=== PATIENT | female | born 1945 | race Caucasian/White ===

== ENCOUNTER 2017-03-01 06:36 | Day surgery (SDC) | payer OTHER, MEDICARE ==
[2017-02-23 14:47] LABS: BASOPHILS % (AUTO) 0.3 % (0-1); CLARITY,URINE CLEAR (Clear); COLOR,URINE YELLOW (Yellow); EOSINOPHILS # (AUTO) 0.3 X10'3 (0-0.9); EOSINOPHILS % (AUTO) 3.6 % (0-6); GLUCOSE, URINE NEGATIVE (Neg); KETONES,URINE NEGATIVE (Neg); LEUKOCYTE ESTERASE ,URINE NEGATIVE (Neg); LYMPHOCYTES # (AUTO) 1.4 X10'3 (1.1-4.8); LYMPHOCYTES % (AUTO) 16.8 % (21-51); MEAN CORPUSCULAR HEMOGLOBIN 30.4 PG (27.0-31.0); MEAN CORPUSCULAR HGB CONC 34.3 % (33.0-36.5); MEAN CORPUSCULAR VOLUME 88.6 FL (78-98); MEAN PLATELET VOLUME 7.1 FL (7.4-10.4); MONOCYTES # (AUTO) 0.8 X10'3 (0-0.9); MONOCYTES % (AUTO) 9.8 % (2-12); NEUTROPHILS # (AUTO) 5.7 X10'3 (1.8-7.7); NEUTROPHILS % (AUTO) 69.5 % (42-75); NITRITES, URINE NEGATIVE (Neg); OCCULT BLOOD,URINE NEGATIVE (Neg); PRE OP HEMATOCRIT 39.5 % (35.0-45.0); PRE OP HEMOGLOBIN 13.6 g/dL (12.0-16.0); PRE OP PLATELET COUNT 245 X10'3 (140-440); PROTEIN,URINE NEGATIVE (Neg); RED BLOOD COUNT 4.46 X10'6 (4.20-5.60); RED CELL DISTRIBUTION WIDTH 13.2 % (11.5-14.5); UROBILINOGEN,URINE 0.2 E.U/dL (0.2-1.0)
[2017-02-23 14:48] LABS: UA COLLECTION TYPE CLN CATCH MIDSTREAM
[2017-02-23 15:01] LABS: ALBUMIN 3.6 G/DL (3.4-5.0); ALKALINE PHOSPHATASE 119 IU/L (46-116); BLOOD UREA NITROGEN 11 MG/DL (7-18); BUN/CREATININE RATIO 12.9 (6.6-38.0); CALCIUM 8.6 MG/DL (8.5-10.1); CHLORIDE 109 MMOL/L (99-107); CREATININE 0.85 MG/DL (0.40-0.90); PRE OP ALT 41 U/L (30-65); PRE OP ANION GAP 10 (8-16); PRE OP AST 30 U/L (10-37); PRE OP BILIRUB, TOTAL 0.5 MG/DL (0.0-1.0); PRE OP GLUCOSE 94 MG/DL (70-104); PRE OP SODIUM 144 MMOL/L (135-145); TOTAL CARBON DIOXIDE 25.5 MMOL/L (24-32); TOTAL PROTEIN 7.3 G/DL (6.4-8.2); eGFR 66 ML/MIN
[2017-02-23 15:02] LABS: PRE OP POTASSIUM 3.2 MMOL/L (3.4-5.1)
[~2017-03-01] VITALS: Ht 165.1 cm; Wt 74.0 kg
[2017-03-01] VITALS (8 sets, daily range): BP systolic 110–138; BP diastolic 56–82
[~2017-03-01 06:36] MED LIST: ATE25T PO; BUPR150T8 PO; CHRO1TAB8 PO; DICL1ADH18 TOP; DOCUMENT DATE & TIME OF BETA-BLOCKER PO ONE; GLUC750T8 PO; HYDR-568 PO; LEVO25TA7 PO; MULT-1074 PO; OMEP-84 PO; RED30POW PO; SIMV20TA5 PO; ceFAZolin inj. 2,000 MG in dextrose 5%-water 100 ML IV ONE; famotidine 20mg tablet PO ONE; ringers solution, lacted 1,000 ML IV SCH
[2017-03-01] MEDS ORDERED: BUPIVAcaine/PF 2.5 mg/ml (0.25%) 30ml vial ONE (07:23)
[2017-03-01 08:05] LABS: ISTAT CREATININE 0.8 mg/dL (0.6-1.1); ISTAT HGB 12.2 g/dl (12.0-16.0); ISTAT IONIZED CALCIUM 1.2 mmol/L (1.03-1.32); ISTAT K 3.7 mmol/L (3.5-5.1)
[2017-03-01] MEDS ORDERED: fentaNYL/PF 50MCG/1 ML 2ML syringe ONE (08:29)
[2017-03-01] MEDS ORDERED: midazolam 2 mg/2 ml injection ONE (08:29)
[2017-03-01] MEDS ORDERED: ondansetron/PF 4mg/2ml inj ONE (08:30)
[2017-03-01] MEDS ORDERED: LIDOcaine 2% (20mg/ml) 5ml vial ONE (08:30)
[2017-03-01] MEDS ORDERED: dexamethasone sod phosphate 4mg/ml inj. ONE (08:30)
[2017-03-01] MEDS ORDERED: propofol inj 20 ML IV ONE (08:30)
[2017-03-01] MEDS ORDERED: ringers solution, lacted 1,000 ML IV SCH (08:33)
[2017-03-01] MEDS ORDERED: sevoflurane 250ml liquid IH ONE (08:33)
[2017-03-01] MEDS ORDERED: ondansetron/PF 4mg/2ml inj IV PRN (08:35)
[2017-03-01] MEDS ORDERED: meperidine/PF 25mg/ml syringe IV PRN ×2 (08:35)
[2017-03-01] MEDS ORDERED: labetalol 5mg/ml 20ml inj. IV PRN (08:35)
[2017-03-01] MEDS ORDERED: hydrALAZINE 20mg/ml inj. IV PRN (08:35)
[2017-03-01] MEDS ORDERED: ePHEDrine 50MG/ML INJ. ONE (08:48)
[2017-03-01] MEDS ORDERED: ketorolac trometh. 30mg/ml inj. ONE (09:11)
== END 2017-03-01 10:46 | disposition home or self-care (01) ==
LOC: PAS 06:36
PROVIDERS: ATTEND Orthopaedic Surgery
DX: S83.232A Complex tear of medial meniscus, current injury, left knee, initial encounter (principal); M17.12 Unilateral primary osteoarthritis, left knee; M67.52 Plica syndrome, left knee; E78.00 Pure hypercholesterolemia, unspecified; G43.909 Migraine, unspecified, not intractable, without status migrainosus; E06.3 Autoimmune thyroiditis; Z79.82 Long term (current) use of aspirin; Z79.899 Other long term (current) drug therapy; Z88.2 Allergy status to sulfonamides; Z88.8 Allergy status to other drugs, medicaments and biological substances; Z87.891 Personal history of nicotine dependence; X58.XXXA Exposure to other specified factors, initial encounter; Y93.9 Activity, unspecified; Y92.9 Unspecified place or not applicable; Y99.9 Unspecified external cause status
CPT/HCPCS: 29881; 36415; 80047; 80053; 81003; 85025; A6449; J0690; J1100; J1885; J2001; J2175; J2250; J2405; J2704; J3010; J3490; J7060; J7120; A7000

== ENCOUNTER 2017-03-16 05:38 | Emergency (ER) | payer OTHER, MEDICARE ==
[~2017-03-16] VITALS: Ht 165.1 cm; Wt 74.3 kg
[~2017-03-16 05:38] MED LIST changes: -DOCUMENT DATE & TIME OF BETA-BLOCKER PO ONE; -ceFAZolin inj. 2,000 MG in dextrose 5%-water 100 ML IV ONE; -famotidine 20mg tablet PO ONE; -ringers solution, lacted 1,000 ML IV SCH
[2017-03-16] MEDS ORDERED: acetaminophen 325mg tablet PO ONE (07:10)
[2017-03-16 10:49] VITALS: BP 107/72
== END 2017-03-16 10:52 | disposition home or self-care (01) ==
LOC: ER 05:38
DX: J06.9 Acute upper respiratory infection, unspecified (principal); K21.9 Gastro-esophageal reflux disease without esophagitis; Z88.2 Allergy status to sulfonamides; Z98.890 Other specified postprocedural states; Z79.02 Long term (current) use of antithrombotics/antiplatelets
CPT/HCPCS: 87081; 87502; 87503; 87880; 99284

== ENCOUNTER 2017-08-15 09:09 | Outpatient (CLI) | payer OTHER, MEDICARE ==
[2017-08-15 09:37] LABS: BASOPHILS % (AUTO) 0.2 % (0-1); EOSINOPHILS # (AUTO) 0.3 X10'3 (0-0.9); EOSINOPHILS % (AUTO) 3.4 % (0-6); HEMATOCRIT 38.4 % (35.0-45.0); HEMOGLOBIN 13.2 g/dl (12.0-16.0); LYMPHOCYTES % (AUTO) 20.3 % (21-51); MEAN CORPUSCULAR HEMOGLOBIN 30.4 PG (27.0-31.0); MEAN CORPUSCULAR HGB CONC 34.5 % (33.0-36.5); MEAN CORPUSCULAR VOLUME 88.1 FL (78-98); MEAN PLATELET VOLUME 7.6 FL (7.4-10.4); MONOCYTES # (AUTO) 0.5 X10'3 (0-0.9); MONOCYTES % (AUTO) 5.2 % (2-12); NEUTROPHILS # (AUTO) 7.1 X10'3 (1.8-7.7); NEUTROPHILS % (AUTO) 70.9 % (42-75); PLATELET COUNT 233 X10'3 (140-440); RED BLOOD COUNT 4.36 X10'6 (4.20-5.60); WHITE BLOOD COUNT 9.9 X10'3 (4.5-11.0)
[2017-08-15 09:42] LABS: CLARITY,URINE CLEAR (Clear); COLOR,URINE YELLOW (Yellow); GLUCOSE, URINE NEGATIVE (Neg); KETONES,URINE NEGATIVE (Neg); LEUKOCYTE ESTERASE ,URINE NEGATIVE (Neg); NITRITES, URINE NEGATIVE (Neg); OCCULT BLOOD,URINE NEGATIVE (Neg); PH,URINE 5.5 (4.8-8.0); PROTEIN,URINE NEGATIVE (Neg); UROBILINOGEN,URINE 0.2 E.U/dL (0.2-1.0)
[2017-08-15 09:43] LABS: UA COLLECTION TYPE CLN CATCH MIDSTREAM
[2017-08-15 10:06] LABS: ALANINE AMINOTRANSFERASE 23 U/L (12-78); ALBUMIN 3.6 G/DL (3.4-5.0); ALBUMIN/GLOBULIN RATIO 0.9 (1.1-1.5); ANION GAP 11 (8-16); ASPARTATE AMINO TRANSFERASE 17 U/L (10-37); BILIRUBIN,TOTAL 0.8 MG/DL (0.1-1.0); BLOOD UREA NITROGEN 23 MG/DL (7-18); BUN/CREATININE RATIO 23.2 (6.6-38.0); CALCIUM 8.6 MG/DL (8.5-10.1); CHLORIDE 106 MMOL/L (99-107); CREATININE 0.99 MG/DL (0.40-0.90); GLUCOSE 108 MG/DL (70-104); POTASSIUM 4.1 MMOL/L (3.5-5.1); SODIUM 142 MMOL/L (135-145); TOTAL CARBON DIOXIDE 25.3 MMOL/L (24-32); TOTAL PROTEIN 7.4 G/DL (6.4-8.2); eGFR 55 ML/MIN
[2017-08-15 10:07] LABS: ALKALINE PHOSPHATASE 104 IU/L (46-116); CHOL/HDL RATIO 3.4 (0.00-4.99); CHOLESTEROL 163 MG/DL (0-200); HDL CHOLESTEROL 48 MG/DL (35-60); LDL CHOLESTEROL 90 MG/DL (50-100); TRIGLYCERIDES 225 MG/DL (20-135)
[2017-08-16 19:10] LABS: MICROALB/CRT, RATIO <2.0 mg/g creat (0.0-30.0)
== END 2017-08-15 23:59 | disposition home or self-care (01) ==
LOC: LAB 09:09
PROVIDERS: ATTEND Family Medicine
DX: Z00.01 Encounter for general adult medical examination with abnormal findings (principal); I10 Essential (primary) hypertension; Z87.891 Personal history of nicotine dependence
CPT/HCPCS: 36415; 80053; 80061; 81003; 82043; 82570; 83036; 84436; 84439; 84443; 85025

== ENCOUNTER 2018-07-10 13:23 | Outpatient (CLI) | payer OTHER, MEDICARE ==
[~2018-07-10 13:23] MED LIST changes: +HYDR-4384 PO; -HYDR-568 PO
[2018-07-10 15:01] LABS: BASOPHILS # (AUTO) 0.1 X10'3 (0-0.2); BASOPHILS % (AUTO) 0.5 % (0-1); EOSINOPHILS # (AUTO) 0.3 X10'3 (0-0.9); EOSINOPHILS % (AUTO) 2.7 % (0-6); HEMATOCRIT 40.1 % (35.0-45.0); HEMOGLOBIN 13.7 g/dl (12.0-16.0); LYMPHOCYTES # (AUTO) 2.7 X10'3 (1.1-4.8); LYMPHOCYTES % (AUTO) 28.3 % (21-51); MEAN CORPUSCULAR HEMOGLOBIN 30.2 PG (27.0-31.0); MEAN CORPUSCULAR VOLUME 88.7 FL (78-98); MEAN PLATELET VOLUME 8.1 FL (7.4-10.4); MONOCYTES # (AUTO) 0.6 X10'3 (0-0.9); MONOCYTES % (AUTO) 6.8 % (2-12); NEUTROPHILS # (AUTO) 5.9 X10'3 (1.8-7.7); NEUTROPHILS % (AUTO) 61.7 % (42-75); PLATELET COUNT 230 X10'3 (140-440); RED BLOOD COUNT 4.52 X10'6 (4.20-5.60); RED CELL DISTRIBUTION WIDTH 13.1 % (11.5-14.5); WHITE BLOOD COUNT 9.5 X10'3 (4.5-11.0)
[2018-07-10 15:32] LABS: ALANINE AMINOTRANSFERASE 26 U/L (12-78); ALBUMIN 3.9 G/DL (3.4-5.0); ALBUMIN/GLOBULIN RATIO 1.1 (1.1-1.5); ALKALINE PHOSPHATASE 110 IU/L (46-116); ANION GAP 11 (8-16); ASPARTATE AMINO TRANSFERASE 19 U/L (10-37); BILIRUBIN,TOTAL 1.1 MG/DL (0.1-1.0); BLOOD UREA NITROGEN 14 MG/DL (7-18); BUN/CREATININE RATIO 16.3 (6.6-38.0); CHLORIDE 103 MMOL/L (99-107); CHOL/HDL RATIO 3.6 (0.00-4.99); CHOLESTEROL 160 MG/DL (0-200); CREATININE 0.86 MG/DL (0.40-0.90); GLUCOSE 81 MG/DL (70-104); HDL CHOLESTEROL 44 MG/DL (35-60); LDL CHOLESTEROL 93 MG/DL (50-100); POTASSIUM 3.8 MMOL/L (3.5-5.1); SODIUM 140 MMOL/L (135-145); TOTAL CARBON DIOXIDE 26.2 MMOL/L (24-32); TOTAL PROTEIN 7.6 G/DL (6.4-8.2); TRIGLYCERIDES 195 MG/DL (20-135); eGFR 65 ML/MIN
== END 2018-07-10 23:59 | disposition home or self-care (01) ==
LOC: LAB 13:23
PROVIDERS: ATTEND Family Medicine
DX: E78.5 Hyperlipidemia, unspecified (principal); L98.9 Disorder of the skin and subcutaneous tissue, unspecified; I10 Essential (primary) hypertension; Z87.891 Personal history of nicotine dependence
CPT/HCPCS: 80053; 80061; 84439; 84443; 85025

== ENCOUNTER 2018-11-28 10:32 | Emergency (ER) | payer OTHER, MEDICARE ==
[~2018-11-28] VITALS: Ht 165.1 cm; Wt 72.7 kg
[~2018-11-28 10:32] MED LIST changes: +SIMV-42 PO; -SIMV20TA5 PO
[2018-11-28 10:35] VITALS: BP 107/86
--- NOTE | 2018-11-28 11:55 | NUR ---
PATIENT TO [facility] 2 WITH C/O PAIN IN LEFT KNEE SINCE YESTERDAY. STATES SHE TWISTED HER KNEE AT WORK YESTERDAY AND IS UNABLE TO BEAR WEIGHT ON IT TODAY. MINIMAL SWELLING NOTED TO LEFT KNEE. PAIN RADIATES UP TO THIGH AND DOWN [place].
== END 2018-11-28 13:37 | disposition home or self-care (01) ==
LOC: ER 10:33
DX: S86.812A Strain of other muscle(s) and tendon(s) at lower leg level, left leg, initial encounter (principal); K21.9 Gastro-esophageal reflux disease without esophagitis; F10.99 Alcohol use, unspecified with unspecified alcohol-induced disorder; Z98.890 Other specified postprocedural states; Z88.2 Allergy status to sulfonamides; Z88.8 Allergy status to other drugs, medicaments and biological substances; Z79.899 Other long term (current) drug therapy; W22.8XXA Striking against or struck by other objects, initial encounter; Y93.89 Activity, other specified; Y92.89 Other specified places as the place of occurrence of the external cause; Y99.8 Other external cause status; Y90.9 Presence of alcohol in blood, level not specified
CPT/HCPCS: 29505; 73564; 99283

== ENCOUNTER 2018-11-30 09:45 | Outpatient (CLI) | payer OTHER, MEDICARE ==
[~2018-11-30 09:45] MED LIST changes: -SIMV-42 PO; +SIMV20TA5 PO
== END 2018-11-30 23:59 | disposition home or self-care (01) ==
LOC: RAD 09:45
PROVIDERS: ATTEND Family Medicine
DX: S83.242A Other tear of medial meniscus, current injury, left knee, initial encounter (principal); M25.462 Effusion, left knee; I10 Essential (primary) hypertension; F17.200 Nicotine dependence, unspecified, uncomplicated; X58.XXXA Exposure to other specified factors, initial encounter; Y93.89 Activity, other specified; Y92.89 Other specified places as the place of occurrence of the external cause; Y99.8 Other external cause status
CPT/HCPCS: 73721

== ENCOUNTER 2019-04-10 14:26 | Emergency (ER) | payer OTHER, MEDICARE ==
[~2019-04-10] VITALS: Ht 165.1 cm; Wt 70.9 kg
[~2019-04-10 14:26] MED LIST changes: +SIMV-42 PO; -SIMV20TA5 PO
[2019-04-10 14:50] VITALS: BP 137/86
== END 2019-04-10 16:15 | disposition home or self-care (01) ==
LOC: ER 14:27
DX: S42.92XA Fracture of left shoulder girdle, part unspecified, initial encounter for closed fracture (principal); K21.9 Gastro-esophageal reflux disease without esophagitis; Z98.890 Other specified postprocedural states; Z72.89 Other problems related to lifestyle; Z88.2 Allergy status to sulfonamides; Z88.8 Allergy status to other drugs, medicaments and biological substances; Z79.899 Other long term (current) drug therapy; W18.39XA Other fall on same level, initial encounter; Y93.89 Activity, other specified; Y92.89 Other specified places as the place of occurrence of the external cause; Y99.8 Other external cause status
CPT/HCPCS: 29105; 73030; 99283

== ENCOUNTER 2019-04-12 09:46 | Outpatient (CLI) | payer OTHER, MEDICARE ==
[2019-04-12 11:58] LABS: BASOPHILS # (AUTO) 0.1 X10'3 (0-0.2); BASOPHILS % (AUTO) 0.6 % (0-1); EOSINOPHILS # (AUTO) 0.4 X10'3 (0-0.9); EOSINOPHILS % (AUTO) 3.9 % (0-6); HEMATOCRIT 36.7 % (35.0-45.0); HEMOGLOBIN 12.5 g/dl (12.0-16.0); LYMPHOCYTES # (AUTO) 2.2 X10'3 (1.1-4.8); LYMPHOCYTES % (AUTO) 20.6 % (21-51); MEAN CORPUSCULAR HEMOGLOBIN 31.3 PG (27.0-31.0); MEAN CORPUSCULAR HGB CONC 34.1 g/dL (33.0-36.5); MEAN CORPUSCULAR VOLUME 91.7 FL (78-98); MEAN PLATELET VOLUME 7.4 FL (7.4-10.4); MONOCYTES # (AUTO) 0.7 X10'3 (0-0.9); MONOCYTES % (AUTO) 6.8 % (2-12); NEUTROPHILS # (AUTO) 7.4 X10'3 (1.8-7.7); NEUTROPHILS % (AUTO) 68.1 % (42-75); PLATELET COUNT 230 X10'3 (140-440); RED CELL DISTRIBUTION WIDTH 13.1 % (11.5-14.5); WHITE BLOOD COUNT 10.8 X10'3 (4.5-11.0)
[2019-04-12 12:25] LABS: ALANINE AMINOTRANSFERASE 19 U/L (12-78); ALBUMIN 3.6 G/DL (3.4-5.0); ALKALINE PHOSPHATASE 98 IU/L (46-116); ANION GAP 7 (8-16); ASPARTATE AMINO TRANSFERASE 14 U/L (10-37); BILIRUBIN,TOTAL 0.7 MG/DL (0.1-1.0); BLOOD UREA NITROGEN 13 MG/DL (7-18); BUN/CREATININE RATIO 12.6 (6.6-38.0); CALCIUM 8.5 MG/DL (8.5-10.1); CHLORIDE 104 MMOL/L (99-107); CHOL/HDL RATIO 3.6 (0.00-4.99); CHOLESTEROL 142 MG/DL (0-200); CREATININE 1.03 MG/DL (0.40-0.90); GLUCOSE 87 MG/DL (70-104); HDL CHOLESTEROL 40 MG/DL (35-60); LDL CHOLESTEROL 72 MG/DL (50-100); POTASSIUM 3.4 MMOL/L (3.5-5.1); SODIUM 142 MMOL/L (135-145); TOTAL CARBON DIOXIDE 30.7 MMOL/L (24-32); TOTAL PROTEIN 7.1 G/DL (6.4-8.2); TRIGLYCERIDES 211 MG/DL (20-135); eGFR 53 ML/MIN
[2019-04-12] MEDS ORDERED: HYDR-4353 PO (13:26)
== END 2019-04-12 23:59 | disposition home or self-care (01) ==
LOC: RAD 09:46
PROVIDERS: ATTEND Family Medicine
DX: Z00.00 Encounter for general adult medical examination without abnormal findings (principal); S42.302A Unspecified fracture of shaft of humerus, left arm, initial encounter for closed fracture; R60.9 Edema, unspecified; M25.412 Effusion, left shoulder; M19.012 Primary osteoarthritis, left shoulder; X58.XXXA Exposure to other specified factors, initial encounter; Y93.89 Activity, other specified; Y92.89 Other specified places as the place of occurrence of the external cause; Y99.8 Other external cause status
CPT/HCPCS: 73221; 80053; 80061; 84439; 84443; 85025

== ENCOUNTER 2019-04-12 11:56 | Emergency (ER) | payer OTHER, MEDICARE ==
[~2019-04-12] VITALS: Ht 165.1 cm; Wt 70.9 kg
[2019-04-12 12:01] VITALS: BP 125/65
[2019-04-12] MEDS ORDERED: HYDR-4353 PO (13:26)
[2019-04-12] MEDS ORDERED: HYDROcodone/acetaminophen 10/325mg tab PO ONE (13:30)
== END 2019-04-12 13:44 | disposition home or self-care (01) ==
LOC: ER 11:56
DX: M25.512 Pain in left shoulder (principal); K21.9 Gastro-esophageal reflux disease without esophagitis; Z76.0 Encounter for issue of repeat prescription; Z88.2 Allergy status to sulfonamides; Z88.1 Allergy status to other antibiotic agents
CPT/HCPCS: 99284

== ENCOUNTER 2019-05-13 11:38 | Outpatient (CLI) | payer OTHER | END 2019-05-13 23:59 | disposition home or self-care (01) | LOC: RAD 11:38 | PROVIDERS: ATTEND Orthopaedic Surgery | DX: S42.295D Other nondisplaced fracture of upper end of left humerus, subsequent encounter for fracture with routine healing (principal); X58.XXXD Exposure to other specified factors, subsequent encounter | CPT/HCPCS: 73030 ==

== ENCOUNTER 2020-01-21 11:07 | Outpatient (CLI) | payer BC ==
[~2020-01-21 11:07] MED LIST changes: -DICL1ADH18 TOP; +DICL1PAT11 TOP
[2020-01-21 11:49] LABS: BASOPHILS # (AUTO) 0.1 X10'3 (0-0.2); BASOPHILS % (AUTO) 0.7 % (0-1); EOSINOPHILS # (AUTO) 0.3 X10'3 (0-0.9); HEMATOCRIT 39.3 % (35.0-45.0); HEMOGLOBIN 13.4 g/dl (12.0-16.0); LYMPHOCYTES # (AUTO) 2.6 X10'3 (1.1-4.8); LYMPHOCYTES % (AUTO) 25.9 % (21-51); MEAN CORPUSCULAR HEMOGLOBIN 30.6 PG (27.0-31.0); MEAN CORPUSCULAR VOLUME 90.2 FL (78-98); MEAN PLATELET VOLUME 7.7 FL (7.4-10.4); MONOCYTES # (AUTO) 0.6 X10'3 (0-0.9); MONOCYTES % (AUTO) 6.4 % (2-12); NEUTROPHILS # (AUTO) 6.3 X10'3 (1.8-7.7); PLATELET COUNT 246 X10'3 (140-440); RED BLOOD COUNT 4.36 X10'6 (4.20-5.60); RED CELL DISTRIBUTION WIDTH 13.5 % (11.5-14.5); WHITE BLOOD COUNT 9.8 X10'3 (4.5-11.0)
[2020-01-21 11:51] LABS: CLARITY,URINE SLIGHTLY CLOUDY (Clear); COLOR,URINE YELLOW (Yellow); GLUCOSE, URINE NEGATIVE (Neg); KETONES,URINE NEGATIVE (Neg); LEUKOCYTE ESTERASE ,URINE NEGATIVE (Neg); NITRITES, URINE NEGATIVE (Neg); OCCULT BLOOD,URINE NEGATIVE (Neg); PROTEIN,URINE NEGATIVE (Neg); UROBILINOGEN,URINE 0.2 E.U/dL (0.2-1.0)
[2020-01-21 11:54] LABS: UA COLLECTION TYPE CLN CATCH MIDSTREAM
[2020-01-21 12:12] LABS: ALANINE AMINOTRANSFERASE 25 U/L (12-78); ALBUMIN 3.6 G/DL (3.4-5.0); ALKALINE PHOSPHATASE 101 IU/L (46-116); ANION GAP 9 (8-16); ASPARTATE AMINO TRANSFERASE 28 U/L (10-37); BILIRUBIN,TOTAL 0.8 MG/DL (0.1-1.0); BLOOD UREA NITROGEN 15 MG/DL (7-18); BUN/CREATININE RATIO 16.7 (6.6-38.0); CALCIUM 8.6 MG/DL (8.5-10.1); CHLORIDE 109 MMOL/L (99-107); CHOL/HDL RATIO 3.2 (0.00-4.99); CHOLESTEROL 139 MG/DL (0-200); GLUCOSE 93 MG/DL (70-104); HDL CHOLESTEROL 43 MG/DL (35-60); LDL CHOLESTEROL 71 MG/DL (50-100); SODIUM 145 MMOL/L (135-145); TOTAL CARBON DIOXIDE 26.8 MMOL/L (24-32); TOTAL PROTEIN 7.2 G/DL (6.4-8.2); TRIGLYCERIDES 259 MG/DL (20-135); eGFR 61 ML/MIN
[2020-01-21 12:27] LABS: BACTERIA,URINE NONE SEEN /HPF (Neg); MUCUS STRANDS MANY /LPF (Neg); RBC,URINE NONE SEEN /HPF (0-2); SQUAMOUS EPITHELIAL CELL,UR FEW /LPF (FEW); WBC,URINE 0-4 /HPF (0-4)
== END 2020-01-21 23:59 | disposition home or self-care (01) ==
LOC: LAB 11:07
PROVIDERS: ATTEND Family Medicine
DX: Z00.00 Encounter for general adult medical examination without abnormal findings (principal)
CPT/HCPCS: 36415; 80053; 80061; 81001; 84439; 84443; 85025

== ENCOUNTER → 2021-02-16 | Outpatient (CLI) | payer BC ==
[~2021-02-16] MED LIST changes: -DICL1PAT11 TOP; +DICL1PAT13 TOP
[2021-02-16 10:09] LABS: CLARITY,URINE CLEAR (Clear); COLOR,URINE YELLOW (Yellow); GLUCOSE, URINE NEGATIVE (Neg); KETONES,URINE NEGATIVE (Neg); LEUKOCYTE ESTERASE ,URINE NEGATIVE (Neg); NITRITES, URINE NEGATIVE (Neg); OCCULT BLOOD,URINE NEGATIVE (Neg); PROTEIN,URINE NEGATIVE (Neg); UROBILINOGEN,URINE 0.2 E.U/dL (0.2-1.0)
[2021-02-16 10:10] LABS: UA COLLECTION TYPE CLN CATCH MIDSTREAM
[2021-02-16 10:20] LABS: BASOPHILS # (AUTO) 0.1 X10'3 (0-0.2); BASOPHILS % (AUTO) 0.9 % (0-1); EOSINOPHILS # (AUTO) 0.3 X10'3 (0-0.9); EOSINOPHILS % (AUTO) 3.8 % (0-6); HEMATOCRIT 40.6 % (35.0-45.0); HEMOGLOBIN 13.5 g/dl (12.0-16.0); LYMPHOCYTES # (AUTO) 2.2 X10'3 (1.1-4.8); LYMPHOCYTES % (AUTO) 24.7 % (21-51); MEAN CORPUSCULAR HEMOGLOBIN 29.7 PG (27.0-31.0); MEAN CORPUSCULAR HGB CONC 33.4 g/dL (33.0-36.5); MEAN CORPUSCULAR VOLUME 88.9 FL (78-98); MEAN PLATELET VOLUME 7.6 FL (7.4-10.4); MONOCYTES # (AUTO) 0.6 X10'3 (0-0.9); MONOCYTES % (AUTO) 6.7 % (2-12); NEUTROPHILS # (AUTO) 5.8 X10'3 (1.8-7.7); NEUTROPHILS % (AUTO) 63.9 % (42-75); PLATELET COUNT 249 X10'3 (140-440); RED BLOOD COUNT 4.56 X10'6 (4.20-5.60)
[2021-02-16 10:32] LABS: ALANINE AMINOTRANSFERASE 24 U/L (12-78); ALBUMIN 3.8 G/DL (3.4-5.0); ALKALINE PHOSPHATASE 127 IU/L (46-116); ANION GAP 12 (8-16); ASPARTATE AMINO TRANSFERASE 18 U/L (10-37); BILIRUBIN,TOTAL 0.9 MG/DL (0.1-1.0); BLOOD UREA NITROGEN 16 MG/DL (7-18); BUN/CREATININE RATIO 21.1 (6.6-38.0); CALCIUM 8.5 MG/DL (8.5-10.1); CHLORIDE 107 MMOL/L (99-107); CHOL/HDL RATIO 2.7 (0.00-4.99); CHOLESTEROL 126 MG/DL (0-200); CREATININE 0.76 MG/DL (0.40-0.90); GLUCOSE 116 MG/DL (70-104); HDL CHOLESTEROL 46 MG/DL (35-60); LDL CHOLESTEROL 61 MG/DL (50-100); POTASSIUM 3.7 MMOL/L (3.5-5.1); SODIUM 145 MMOL/L (135-145); TOTAL CARBON DIOXIDE 25.8 MMOL/L (24-32); TOTAL PROTEIN 7.6 G/DL (6.4-8.2); TRIGLYCERIDES 137 MG/DL (20-135); eGFR 74 ML/MIN
== END | disposition home or self-care (01) ==
LOC: LAB 09:41
PROVIDERS: ATTEND Family Medicine
DX: Z00.01 Encounter for general adult medical examination with abnormal findings (principal)
CPT/HCPCS: 36415; 80053; 80061; 81003; 84439; 84443; 85025

== ENCOUNTER 2021-06-01 11:13 | Outpatient (CLI) | payer BC ==
[2021-06-01 12:19] LABS: RHEUM FACTOR QUAL REFLEX TITER NEGATIVE (Neg)
== END 2021-06-01 23:59 | disposition home or self-care (01) ==
LOC: LAB 11:13
PROVIDERS: ATTEND Family Medicine
DX: M19.90 Unspecified osteoarthritis, unspecified site (principal)
CPT/HCPCS: 36415; 85651; 86038; 86430

== ENCOUNTER 2024-08-13 11:41 | Outpatient (CLI) | payer MEDICARE, OTHER ==
--- NOTE | 2024-08-13 13:13 | RADIOLOGY REPORT ---
CLINICAL INDICATION: LEFT HIP PAIN TECHNIQUE: 1 radiographic views of the pelvis and 2 views of the left were obtained. Comparison: None FINDINGS/IMPRESSION: There is no evidence of acute fracture or dislocation. 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
== END 2024-08-13 23:59 | disposition home or self-care (01) ==
LOC: RAD 11:41
PROVIDERS: ATTEND Family Medicine
DX: M16.0 Bilateral primary osteoarthritis of hip (principal); M25.552 Pain in left hip
CPT/HCPCS: 73502

== ENCOUNTER 2024-08-14 12:24 | Outpatient (CLI) | payer MEDICARE, OTHER ==
--- NOTE | 2024-08-14 14:37 | RADIOLOGY REPORT ---
CLINICAL INFORMATION: Lumbar radiculopathy. TECHNIQUE: Multisequence multiplanar MRI images of the lumbar spine were obtained without contrast. COMPARISON: None INTERPRETATION: Moderate levoconvex curvature of the thoracolumbar spine with apex at L2. Mild left lateral listhesis of L3 on L4 up to 4 mm. Mild grade 1 anterolisthesis of L4 on L5 measuring up to 4 mm. Vertebral body heights are maintained. Posterior elements are intact. No focal suspicious mar row signal abnormality. Visualized spinal cord and cauda equina are within normal limits. The conus medullaris is appropriate in signal at the L1-L2 level. Moderate fatty atrophy of the paraspinal mu sculature of the lumbosacral spine. There are bilateral renal cysts. L1-L2: Disc desiccation. No significant spinal canal or neural foraminal stenosis. L2-L3: Disc desiccation with moderate disc space narrowing and mild diffuse disc bulge. There is a m ild degree of spinal canal stenosis and mild partial effacement of the lateral recesses. Facet hypert rophy with mild left and severe right neural foraminal stenoses. L3-L4: Disc desiccation with diffuse disc bulge and concomitant facet hypertrophy contributing to mo derate spinal canal stenosis and effacement of the lateral recesses. Small right facet joint effusion . Moderate to severe bilateral neural foraminal stenoses. L4-L5: Disc desiccation with mild disc space narrowing and diffuse disc bulge superimposed and facet hypertrophy contributing to moderate spinal canal stenosis. There is effacement of the lateral rece sses, left greater than right. Facet hypertrophy and encroachment of the neural foramina by the disc bulge contributes to severe left and moderate right neural foraminal stenoses. Small right facet join t effusion. L5-S1: Disc desiccation. No significant spinal canal or neural foraminal stenosis. IMPRESSION: 1. Degenerative disc disease and facet disease in the lumbar spine with associated spinal canal, suba rticular, and neural foraminal stenoses as detailed above. 2. Levoconvex curvature of the thoracolumbar spine and mild spondylolistheses as described above. 3. Additional findings as detailed above.
== END 2024-08-14 23:59 | disposition home or self-care (01) ==
LOC: MRI02 12:24
PROVIDERS: ATTEND Family Medicine
DX: M51.17 Intervertebral disc disorders with radiculopathy, lumbosacral region (principal); M43.16 Spondylolisthesis, lumbar region
CPT/HCPCS: 72148

== ENCOUNTER 2024-10-25 08:01 | Outpatient (CLI) | payer MEDICARE, OTHER ==
--- NOTE | 2024-10-25 10:18 | RADIOLOGY REPORT ---
CLINICAL HISTORY: RIGHT UPPER QUADRANT PAIN TECHNIQUE: Transabdominal sonogram was performed of the right upper quadrant. COMPARISON: None FINDINGS: The liver is normal in echogenicity. There is no focal parenchymal abnormality. No intrahepatic bili shirley ductal dilatation is present. The liver measures 15.5 cm. The gallbladder contains numerous stones with no significant wall depending or pericholecystic fluid. The center graphic mccarty sign was reported to be absent. The common bile duct is top normal in caliber, measuring 7 mm. The partially visualized pancreas is grossly unremarkable. The right kidney is normal in echogenicity and measures 9.2 cm in length. There is no evidence for hy dronephrosis or calculi. IMPRESSION: Cholelithiasis. Top normal 7 mm common duct for patient age. Please correlate with laboratory values and consider [facility] P if warranted.
== END 2024-10-25 23:59 | disposition home or self-care (01) ==
LOC: RAD 08:01
PROVIDERS: ATTEND Family Medicine
DX: K80.20 Calculus of gallbladder without cholecystitis without obstruction (principal); R10.11 Right upper quadrant pain
CPT/HCPCS: 76700